=== PATIENT | male | born 1980 | race American Indian/Alaskan Native ===

== ENCOUNTER 2017-09-04 23:08 | Emergency (ER) | payer SELFPAY ==
[2017-09-04 23:20] VITALS: BP 130/90
[2017-09-05] MEDS ORDERED: KEPPRA 1,000 MG/NS 0.75% 100ML 1,000 MG/100 ML BAG IV ONE (00:04)
--- NOTE | 2017-09-05 00:11 | Emergency Department Report ---
ED Seizure HPI - General Chief Complaint: Seizure Stated Complaint: SEIZURE Time Seen by Provider: 09/04/17 23:57 Source: patient, EMS Mode of arrival: Stretcher Limitations: No Limitations, Other - History of Present Illness Initial Comments: Patient is 36 years old male history of seizure was six month ago he is not on any medication provided by EMS with one episode of lysed tonic-clonic seizure witnessed by his son. Patient denied any injury. MD Complaint: seizure -: Sudden Description of Episode: loss of consciousness, tonic-clonic movement, post- event confusion Witnessed:: Yes Trauma: No Seizure History: known seizure disorder Place: home - Related Data Previous Rx's Medication Instructions Recorded Last Taken Type Omeprazole Magnesium [PriLOSEC Otc] 20 mg PO QDAY #14 tablet. 01/09/17 Unknown Rx Ondansetron [Zofran TAB] 4 mg PO Q8HR PRN #14 tablet 01/09/17 Unknown Rx traMADol [Ultram 50 MG tab] 50 mg PO Q6HR PRN #12 tablet 01/09/17 Unknown Rx Allergies Allergy/AdvReac Type Severity Reaction Status Date / Time No Known Allergies Allergy Unverified 01/09/17 10:39 ED Review of Systems ROS: Stated complaint: SEIZURE Other details as noted in HPI Comment: All other systems reviewed and negative Constitutional: denies: chills, fever Respiratory: denies: cough Cardiovascular: denies: chest pain, palpitations, dyspnea on exertion Gastrointestinal: denies: abdominal pain, nausea, vomiting, diarrhea, constipation, hematemesis Genitourinary: denies: urgency, frequency Neurological: denies: headache ED Past Medical Hx - Past Medical History Previous Medical History?: Yes Hx Seizures: Yes - Surgical History Past Surgical History?: No - Social History Smoking Status: Unknown if ever smoked - Medications Home Medications: Home Medications Medication Instructions Recorded Confirmed Last Taken Type Omeprazole Magnesium [PriLOSEC Otc] 20 mg PO QDAY #14 tablet. 01/09/17 Unknown Rx Ondansetron [Zofran TAB] 4 mg PO Q8HR PRN #14 tablet 01/09/17 Unknown Rx traMADol [Ultram 50 MG tab] 50 mg PO Q6HR PRN #12 tablet 01/09/17 Unknown Rx ED Physical Exam - General Limitations: No Limitations, Other General appearance: alert, in no apparent distress - Head Head exam: Present: atraumatic, normocephalic - Eye Eye exam: Present: normal appearance - ENT ENT exam: Present: normal exam, normal orophraynx, mucous membranes moist, TM's normal bilaterally - Neck Neck exam: Present: normal inspection, full ROM. Absent: tenderness, meningismus, lymphadenopathy - Respiratory Respiratory exam: Present: normal lung sounds bilaterally. Absent: respiratory distress, wheezes, rales - Cardiovascular Cardiovascular Exam: Present: regular rate, normal rhythm, normal heart sounds - GI/Abdominal GI/Abdominal exam: Present: soft, normal bowel sounds. Absent: distended, tenderness, guarding, rebound, rigid, mass, bruit, pulsatile mass, hernia - Extremities Exam Extremities exam: Present: normal inspection, normal capillary refill. Absent: tenderness - Back Exam Back exam: Present: normal inspection. Absent: tenderness, CVA tenderness (R), CVA tenderness (L) - Neurological Exam Neurological exam: Present: alert, oriented X3, CN II-XII intact, normal gait - Skin Skin exam: Present: warm, intact, normal color ED Course Vital Signs 09/04/17 23:19 Temperature 98 F Pulse Rate 72 Respiratory 18 Rate Blood Pressure 130/90 [Left] O2 Sat by Pulse 98 Oximetry - Reevaluation(s) Reevaluation #1: 09/05/17 01:29 No seizure activity observed in the ER. ED Medical Decision Making - Lab Data Result diagrams: 09/05/17 00:15 09/05/17 00:15 - Radiology Data Radiology results: report reviewed CT brain unremarkable for acute finding - Medical Decision Making Since this is a second seizure patient is not on any antiseizure medication. I gave the patient 1 g loading dose of Keppra. I will discharge patient home with a Keppra prescription and is strongly advised to follow-up with a neurolgist. Critical care attestation.: If time is entered above; I have spent that time in minutes in the direct care of this critically ill patient, excluding procedure time. ED Disposition Clinical Impression: Seizure Disposition: DC-01 TO HOME OR SELFCARE Is pt being admited?: No Condition: Stable Instructions: Recurrent Seizures Adult (ED) Referrals: PRIMARY CARE, [Primary Care Provider] - 3-5 Days
[2017-09-05 00:56] LABS: Alanine Aminotransferase 17 units/L (7-56); Albumin 4.2 g/dL (3.9-5); Albumin/Globulin Ratio 1.8 %; Alkaline Phosphatase 51 units/L (35-129); Anion Gap 18 mmol/L; BUN/Creatinine Ratio 17; Blood Urea Nitrogen 17 mg/dL (9-20); Carbon Dioxide 23 mmol/L (22-30); Chloride 100.8 mmol/L (98-107); Glucose 85 mg/dL (75-100); Potassium 4.5 mmol/L (3.6-5.0); Sodium 137 mmol/L (137-145); Total Protein 6.5 g/dL (6.3-8.2)
[2017-09-05 01:03] LABS: Basophils % (Auto) 0.4 % (0.0-1.8); Eosinophils % (Auto) 0.9 % (0.0-4.3); Hemoglobin 13.5 gm/dl (11.8-15.2); Mean Corpuscular HGB Conc 33 % (32-34); Mean Corpuscular Hemoglobin 31 pg (28-32); Mean Corpuscular Volume 94 fl (84-94); Platelet Count 256 K/mm3 (140-440); White Blood Count 9.5 K/mm3 (4.5-11.0)
--- NOTE | 2017-09-05 01:14 | Cat Scan Report ---
FINAL REPORT EXAM: CT HEAD/BRAIN WO CON HISTORY: AMS COMPARISON: January [address] TECHNIQUE: Axial images obtained skull base through vertex. FINDINGS: No acute intracranial hemorrhage, midline shift or pathologic extra axial fluid collection. Ventricles and cisterns are normal in size and configuration for the patient's age. Avery-white differentiation preserved. Calvarium grossly intact. Mild to moderate mucosal thickening in the visualized paranasal sinuses. Mastoid air cells are clear. Visualized orbits are grossly unremarkable. IMPRESSION: No grossly acute intracranial abnormality.
[2017-09-05 01:25] LABS: Hematocrit 41.3 % (35.5-45.6); Red Blood Count 4.37 M/mm3 (3.65-5.03)
[2017-09-05 01:26] LABS: Mean Platelet Volume 9.8 fl (6-12); Red Cell Distribution Width 12.8 % (13.2-15.2)
== END 2017-09-05 01:53 | disposition home or self-care (01) ==
LOC: ED 23:08
DX: R56.9 Unspecified convulsions (principal)
CPT/HCPCS: 36415; 70450; 80053; 85025; 96374; 99285; J1953

== ENCOUNTER 2017-10-23 00:05 | Emergency (ER) | payer OTHER ==
[2017-10-23] MEDS ORDERED: NACL 0.9% 1000 ML 1,000 ML IV ONE ×2 (00:22→03:34)
[2017-10-23] MEDS ORDERED: KEPPRA 1,000 MG/NS 0.75% 100ML 1,000 MG/100 ML BAG IV ONE (00:22)
[2017-10-23 00:55] LABS: Basophils % (Auto) 0.2 % (0.0-1.8); Eosinophils % (Auto) 0.4 % (0.0-4.3); Hematocrit 42.8 % (35.5-45.6); Hemoglobin 13.9 gm/dl (11.8-15.2); Mean Corpuscular HGB Conc 33 % (32-34); Mean Corpuscular Hemoglobin 30 pg (28-32); Mean Corpuscular Volume 94 fl (84-94); Platelet Count 259 K/mm3 (140-440); Red Blood Count 4.56 M/mm3 (3.65-5.03)
--- NOTE | 2017-10-23 01:03 | Emergency Department Report ---
HPI - General Chief Complaint: Seizure Time Seen by Provider: 10/23/17 00:13 - HPI HPI: This is a 37-year-old -[place] male presents to the emergency department by EMS from home with the complaint of one to 2 seizures. Patient was found to be postictal and family had stated that he had a seizure that lasted about 15 minutes and during the seizure he had fallen off the bed and hit his head on the nightstand. At this point, the patient is awake and alert and complaining mostly of feeling thirsty and says that he bit his tongue. He says he has had seizures before but denies being on any antiseizure medication. He did not receive anything for her symptoms prior to presentation or in route. He denies any other past medical history. He denies any illicit drug use. No recent travel or sick contacts at home. ED Past Medical Hx - Past Medical History Previous Medical History?: Yes Hx Seizures: Yes - Surgical History Past Surgical History?: No - Social History Smoking Status: Current Every Day Smoker Substance Use Type: None - Medications Home Medications: Home Medications Medication Instructions Recorded Confirmed Last Taken Type Sulfamethoxazole/Trimethoprim 1 each PO BID #10 tablet 10/23/17 Unknown Rx [Bactrim DS TAB] levETIRAcetam [Keppra] 500 mg PO BID #60 tablet 10/23/17 Unknown Rx ED Review of Systems ROS: Stated complaint: SEIZURE Other details as noted in HPI Comment: All other systems reviewed and negative Constitutional: denies: chills, fever Eyes: denies: eye pain, eye discharge, vision change ENT: denies: ear pain, throat pain Respiratory: denies: cough, shortness of breath, wheezing Cardiovascular: denies: chest pain, palpitations Endocrine: increased thirst Gastrointestinal: denies: abdominal pain, nausea, diarrhea Genitourinary: denies: urgency, dysuria Musculoskeletal: denies: back pain, joint swelling, arthralgia Skin: denies: rash, lesions Neurological: other (seizure). denies: numbness, paresthesias Physical Exam - Physical Exam Vital Signs: Vital Signs 10/23/17 00:19 Temperature 97.8 F Pulse Rate 95 H Respiratory 16 Rate Blood Pressure 107/85 Blood Pressure 107/85 [Left] O2 Sat by Pulse 99 Oximetry Physical Exam: GENERAL: The patient is well-developed well-nourished. HENT: Normocephalic. Atraumatic. Patient has moist mucous membranes. Oropharynx is clear. There is a small right-sided tongue laceration from the patient biting his tongue that appears approximated. EYES: Extraocular motions are intact. Pupils equal reactive to light bilaterally. NECK: Supple. Trachea is midline. CHEST/LUNGS: Clear to auscultation. There is no respiratory distress noted. HEART/CARDIOVASCULAR: Regular. There is no tachycardia. There is no murmur. ABDOMEN: Abdomen is soft, nontender. Patient has normal bowel sounds. There is no abdominal distention. SKIN: Skin is warm and dry. NEURO: The patient is awake, alert, and oriented. The patient is cooperative. The patient has no focal neurologic deficits. The patient has normal speech. Cranial nerves II through XII grossly intact. MUSCULOSKELETAL: There is no tenderness or deformity. There is no limitation range of motion. There is no evidence of acute injury. ED Course Vital Signs 10/23/17 00:19 Temperature 97.8 F Pulse Rate 95 H Respiratory 16 Rate Blood Pressure 107/85 Blood Pressure 107/85 [Left] O2 Sat by Pulse 99 Oximetry ED Medical Decision Making - Lab Data Result diagrams: 10/23/17 00:32 10/23/17 00:32 - EKG Data -: EKG Interpreted by Nd EKG shows normal: sinus rhythm, axis, intervals, QRS complexes (Q waves to the septal leads), ST-T waves (there is some early repolarization) Rate: normal - EKG Data When compared to previous EKG there are: no significant change Interpretation: unchanged when compared t (01/10/2017) - Radiology Data Radiology results: report reviewed EXAM: CT Head w/o Contrast CLINICAL INDICATIONS: SEIZURE, HIT HEAD FINDINGS: Unenhanced CT of the brain was performed and demonstrates no acute intracranial hemorrhage, extra-axial fluid collection, midline shift or mass effect. The ventricles and basal cisterns are not effaced. The mastoid air cells and middle ears appear clear. There is a right maxillary polyp versus mucous retention cyst. There is no evidence of acute sinusitis. The bony calvarium appears intact. IMPRESSION: NO ACUTE INTRACRANIAL HEMORRHAGE Transcribed By: ALDEN Dictated By: ALEJANDRO BENNETT MD Electronically Authenticated By: ALEJANDRO BENNETT MD Signed Date/Time: 12/16/17 2202 - Medical Decision Making Patient presents after having a witnessed seizure at home that allegedly lasted about 15 minutes. He later told family that he had a seizure prior to this as well. He presents awake and alert. He was reevaluated multiple times for multiple hours and has remained stable and there has been no further seizure- like activity. CT the head did not show any bleed, shift, mass or any acute process. His labs have been mostly unremarkable. Urine drug screen came back positive for cocaine use. The patient later says that he took an ecstasy pill a few days ago that must have been cocaine based. He was covered with some IV Keppra and given some fluid resuscitation as he had a slightly elevated CPK level as well. Eventually the patient was seen ambulatory in the emergency department and appears stable. Vital signs stable throughout his ED course. He appears stable for discharge home at this time. He will go home with Keppra for antiepileptic medication, a few days of Bactrim to make sure he does not develop any infection with his tongue biting and no laceration and he was given a referral for neurology for follow-up regarding the seizures. He will return to the ER with any worsening of symptoms or any acute distress. - Differential Diagnosis epilepsy, substance abuse, TIA Critical Care Time: No Critical care attestation.: If time is entered above; I have spent that time in minutes in the direct care of this critically ill patient, excluding procedure time. ED Disposition Clinical Impression: Seizure, Cocaine use, Tongue biting Disposition: DC-01 TO HOME OR SELFCARE Is pt being admited?: No Condition: Stable Instructions: Cocaine Abuse (ED), Recurrent Seizures Adult (ED) Additional Instructions: Please follow up with a primary care physician in the next few days. I have given her a referral for a local neurologist, Dr. Mckenzie, to follow up regarding your seizures. Please stay away from any illicit drug use or alcohol use/abuse as this can lower your seizure threshold. I have written you for some antiseizure medication, Keppra, to be taken twice daily. Return to the emergency department with any further seizure-like activity, worsening of your symptoms, or any acute distress. Prescriptions: levETIRAcetam [Keppra] 500 mg PO BID #60 tablet Sulfamethoxazole/Trimethoprim [Bactrim DS TAB] 1 each PO BID #10 tablet Referrals: ILT TORRES MD [Staff Physician] - 3-5 Days SHIKHA MCKENZIE MD [Staff Physician] - 3-5 Days Time of Disposition: 05:18
[2017-10-23] MEDS ORDERED: TYLENOL PO ONE (01:37)
[2017-10-23 01:43] LABS: Urine Drugs of Abuse Note Disclamer
[2017-10-23 01:56] LABS: Bacteria,Urine 1+ /HPF (Negative); Bilirubin,Urine NEG (Negative); Blood,Urine NEG (Negative); Ketones,Urine TR mg/dL (Negative); Leukocyte Esterase,Urine NEG (Negative); Mucus,Urine FEW /HPF; Nitrite,Urine NEG (Negative); Protein,Urine <15 mg/dL mg/dL (Negative); Urobilinogen,Urine < 2.0 mg/dL (<2.0)
[2017-10-23 01:59] LABS: Alanine Aminotransferase 14 units/L (7-56); Albumin 4.6 g/dL (3.9-5); Albumin/Globulin Ratio 1.5 %; Alkaline Phosphatase 61 units/L (35-129); Anion Gap 21 mmol/L; BUN/Creatinine Ratio 13; Blood Urea Nitrogen 13 mg/dL (9-20); Calcium 9.3 mg/dL (8.4-10.2); Carbon Dioxide 23 mmol/L (22-30); Chloride 102.1 mmol/L (98-107); Creatine Kinase 715 units/L (55-170); Glucose 84 mg/dL (75-100); Potassium 4.7 mmol/L (3.6-5.0); Sodium 141 mmol/L (137-145); Total Protein 7.6 g/dL (6.3-8.2)
--- NOTE | 2017-10-23 02:05 | Cat Scan Report ---
FINAL REPORT EXAM: CT Head w/o Contrast CLINICAL INDICATIONS: SEIZURE, HIT HEAD FINDINGS: Unenhanced CT of the brain was performed and demonstrates no acute intracranial hemorrhage, extra-axial fluid collection, midline shift or mass effect. The ventricles and basal cisterns are not effaced. The mastoid air cells and middle ears appear clear. There is a right maxillary polyp versus mucous retention cyst. There is no evidence of acute sinusitis. The bony calvarium appears intact. IMPRESSION: NO ACUTE INTRACRANIAL HEMORRHAGE
[2017-10-23 04:48] VITALS: BP 117/77
== END 2017-10-23 05:46 | disposition home or self-care (01) ==
LOC: ED 00:05
DX: R56.9 Unspecified convulsions (principal); S01.552A Open bite of oral cavity, initial encounter; F14.90 Cocaine use, unspecified, uncomplicated; Z79.899 Other long term (current) drug therapy; W18.09XA Striking against other object with subsequent fall, initial encounter; Y93.89 Activity, other specified; Y99.8 Other external cause status; Y92.009 Unspecified place in unspecified non-institutional (private) residence as the place of occurrence of the external cause
CPT/HCPCS: 36415; 70450; 80053; 80307; 81001; 82550; 84443; 84484; 85025; 93005; 93010; 96361; 96365; 99284; G0480; J1953; J7030; 80320

== ENCOUNTER 2018-11-19 16:28 | Emergency (ER) | payer SELFPAY ==
[2018-11-19] MEDS ORDERED: ATIVAN ONE (16:48)
[2018-11-19] MEDS ORDERED: D50W (25GM) Syringe IV ONE ×2 (16:58→17:20)
[2018-11-19] MEDS ORDERED: NACL 0.9% 1000 ML 1,000 ML IV ONE (17:05)
[2018-11-19] MEDS ORDERED: KEPPRA 1,000 MG/NS 0.75% 100ML 1,000 MG/100 ML BAG IV ONE (17:05)
--- NOTE | 2018-11-19 17:08 | Emergency Department Report ---
ED Seizure HPI - General Chief Complaint: Seizure Stated Complaint: SEIZURE Time Seen by Provider: 11/19/18 17:03 Source: EMS Mode of arrival: Stretcher Limitations: Other - History of Present Illness Initial Comments: Patient is a 38-year-old -[place] male with past history of seizure disorder who has been medically noncompliant with his medications and is presenting status post seizure. Patient had a tonic-clonic seizure prior to arrival as well as one was C arrived. Emergency department. Patient was given Ativan while having a seizure here in the emergency department. Patient is unable to give any additional history at this time. - Related Data Previous Rx's Medication Instructions Recorded Last Taken Type Sulfamethoxazole/Trimethoprim 1 each PO BID #10 tablet 10/23/17 Unknown Rx [Bactrim DS TAB] Nystas/Diphen/Xyl Visc/Mylanta 30 ml MM Q4H #200 ml 11/19/18 Unknown Rx [Magic Mouthwash] levETIRAcetam [Keppra] 500 mg PO BID #60 tablet 11/19/18 Unknown Rx Allergies Allergy/AdvReac Type Severity Reaction Status Date / Time No Known Allergies Allergy Verified 11/19/18 17:02 ED Review of Systems ROS: Stated complaint: SEIZURE Other details as noted in HPI Comment: Unobtainable due to pts medical conditions ED Past Medical Hx - Past Medical History Hx Seizures: Yes - Social History Smoking Status: Unknown if ever smoked - Medications Home Medications: Home Medications Medication Instructions Recorded Confirmed Last Taken Type Sulfamethoxazole/Trimethoprim 1 each PO BID #10 tablet 10/23/17 Unknown Rx [Bactrim DS TAB] Nystas/Diphen/Xyl Visc/Mylanta 30 ml MM Q4H #200 ml 11/19/18 Unknown Rx [Magic Mouthwash] levETIRAcetam [Keppra] 500 mg PO BID #60 tablet 11/19/18 Unknown Rx ED Physical Exam - General Limitations: Altered Mental Status, Other General appearance: lethargic - Head Head exam: Present: atraumatic, normocephalic - Eye Eye exam: Present: normal appearance, PERRL - ENT ENT exam: Present: mucous membranes moist. Absent: normal orophraynx (patient has a small laceration to tongue) - Neck Neck exam: Present: normal inspection - Respiratory Respiratory exam: Present: normal lung sounds bilaterally. Absent: respiratory distress, wheezes, rales, rhonchi - Cardiovascular Cardiovascular Exam: Present: regular rate, normal rhythm, normal heart sounds. Absent: systolic murmur, diastolic murmur, rubs, gallop - GI/Abdominal GI/Abdominal exam: Present: soft, normal bowel sounds. Absent: distended, rigid - Psychiatric Psychiatric exam: Absent: normal affect, normal mood, depressed ED Course Vital Signs 11/19/18 11/19/18 11/19/18 16:58 17:00 17:02 Temperature 96.8 F L Pulse Rate 113 H 113 H 110 H Respiratory 21 36 H 16 Rate Blood Pressure 161/77 O2 Sat by Pulse 100 Oximetry 11/19/18 11/19/18 11/19/18 17:16 17:30 17:46 Temperature Pulse Rate 101 H 95 H 120 H Respiratory 22 23 26 H Rate Blood Pressure O2 Sat by Pulse Oximetry 11/19/18 11/19/18 11/19/18 18:00 18:15 18:30 Temperature Pulse Rate 110 H 109 H 107 H Respiratory 20 18 17 Rate Blood Pressure 111/63 114/66 109/61 O2 Sat by Pulse 93 91 90 Oximetry 11/19/18 11/19/18 11/19/18 18:45 19:00 19:15 Temperature Pulse Rate 110 H 103 H 98 H Respiratory 21 19 19 Rate Blood Pressure 96/66 96/66 118/72 O2 Sat by Pulse 92 90 94 Oximetry 11/19/18 11/19/18 11/19/18 19:30 19:45 20:00 Temperature Pulse Rate 96 H 94 H 88 Respiratory 18 19 15 Rate Blood Pressure 123/69 113/71 115/76 O2 Sat by Pulse 92 92 91 Oximetry 11/19/18 11/19/18 11/19/18 20:16 20:30 20:45 Temperature Pulse Rate 95 H 94 H 90 Respiratory 21 16 15 Rate Blood Pressure 117/70 125/75 130/76 O2 Sat by Pulse 89 95 96 Oximetry 11/19/18 11/19/18 11/19/18 21:00 21:16 21:30 Temperature Pulse Rate 108 H 107 H 89 Respiratory 14 14 16 Rate Blood Pressure 129/81 131/84 131/84 O2 Sat by Pulse 88 97 95 Oximetry - Reevaluation(s) Reevaluation #1: 11/19/18 17:08 Patient was noted by nursing staff to have a blood sugar in the 40s. Patient w as given an amp of D50 and we will recheck his blood sugar approximately an hour. Reevaluation #2: 11/19/18 22:01 Patient was monitored and eventually was alert and oriented 3 in no longer postictal. Patient once he completely lucid was complaining of some left sided jaw pain. Patient does have a small abrasion to the inner cheek as well as tongue however he also has some tenderness at the angle of the jaw as well. CT of the facial bones was added as negative for acute fracture. Patient was discharged home with a prescription for his Keppra. ED Medical Decision Making - Lab Data Result diagrams: 11/19/18 17:09 11/19/18 17:09 - Radiology Data Radiology results: image reviewed (CT of facial bones shows no acute process) Critical care attestation.: If time is entered above; I have spent that time in minutes in the direct care of this critically ill patient, excluding procedure time. ED Disposition Clinical Impression: Seizure, Medical non-compliance Alcohol intoxication Qualifiers: Complication of substance-induced condition: uncomplicated Qualified Code(s): F10.920 - Alcohol use, unspecified with intoxication, uncomplicated Abrasion of oral cavity Qualifiers: Encounter type: initial encounter Qualified Code(s): S00.512A - Abrasion of oral cavity, initial encounter Disposition: TO HOME OR SELFCARE Is pt being admited?: No Does the pt Need Aspirin: No Condition: Stable Prescriptions: levETIRAcetam [Keppra] 500 mg PO BID #60 tablet Nystas/Diphen/Xyl Visc/Mylanta [Magic Mouthwash] 30 ml MM Q4H #200 ml Referrals: PRIMARY CARE, [Primary Care Provider] - 3-5 Days Time of Disposition: 22:04
[2018-11-19 17:16] LABS: Mean Corpuscular HGB Conc 30 % (32-34); Mean Corpuscular Volume 102 fl (84-94); Platelet Count 300 K/mm3 (140-440); Red Blood Count 4.65 M/mm3 (3.65-5.03); Red Cell Distribution Width 14.4 % (13.2-15.2)
[2018-11-19 17:19] LABS: Hematocrit 47.3 % (35.5-45.6); Hemoglobin 14.2 gm/dl (11.8-15.2)
[2018-11-19] MEDS ORDERED: ATIVAN IV ONE ×2 (17:20→17:55)
[2018-11-19 17:32] LABS: BUN/Creatinine Ratio 14; Blood Urea Nitrogen 17 mg/dL (9-20); Hemolysis Index 94
[2018-11-19 19:10] LABS: Anisocytosis 1+; Band Neutrophils # (Manual) 0.6 K/mm3; Basophils % (Manual) 0 % (0.0-1.8); Macrocytosis Few; Platelet Estimate Consistent w Auto; Total Cells Counted 100
[2018-11-19 21:38] VITALS: BP 131/84
--- NOTE | 2018-11-19 22:25 | Cat Scan Report ---
FINAL REPORT EXAM: CT FACIAL BONES WO CON HISTORY: left jaw pain after SZ. PT WAS OUT OF IT AND COMBATIVE. COULDN'T TAKE JEWELRY OFF HIM. BEST STUDY POSSIBLE. KEPT MOVING. REPEATED. TECHNIQUE: Helical CT was performed of the facial bones in the axial plane and reconstructed in the sagittal and coronal planes. PRIORS: None. FINDINGS: The orbits, zygomatic arches and mandible are intact. The nasal bones and pterygoid plates are intact . There is no evidence of acute facial fracture. The soft tissues appear normal. There is patchy opac ification of the bilateral ethmoid air cells. There is mild mucosal thickening in the right maxillary and sphenoid sinuses. IMPRESSION: No evidence of acute fracture.
== END 2018-11-19 22:35 | disposition home or self-care (01) ==
LOC: ED 16:28
DX: G40.909 Epilepsy, unspecified, not intractable, without status epilepticus (principal); S00.512A Abrasion of oral cavity, initial encounter; F10.920 Alcohol use, unspecified with intoxication, uncomplicated; X58.XXXA Exposure to other specified factors, initial encounter; Y93.89 Activity, other specified; Y92.89 Other specified places as the place of occurrence of the external cause; Y99.8 Other external cause status
CPT/HCPCS: 36415; 70486; 80048; 82962; 85007; 85025; 96365; 96375; 96376; 99285; G0480; J1953; J2060; J7030; 80320

== ENCOUNTER 2018-12-04 04:48 | Emergency (ER) | payer SELFPAY ==
[2018-12-04 05:52] LABS: Hematocrit 38.2 % (35.5-45.6); Hemoglobin 12.4 gm/dl (11.8-15.2); Mean Corpuscular HGB Conc 33 % (32-34); Mean Corpuscular Volume 94 fl (84-94); Platelet Count 328 K/mm3 (140-440); Red Blood Count 4.09 M/mm3 (3.65-5.03); Red Cell Distribution Width 13.4 % (13.2-15.2)
[2018-12-04 06:03] LABS: BUN/Creatinine Ratio 15; Blood Urea Nitrogen 12 mg/dL (9-20); Calcium 8.9 mg/dL (8.4-10.2); Hemolysis Index 17
[2018-12-04] MEDS ORDERED: NACL 0.9% 1000 ML 1,000 ML IV ONE (06:30)
[2018-12-04] MEDS ORDERED: KEPPRA 1,000 MG/NS 0.75% 100ML 1,000 MG/100 ML BAG IV ONE (06:30)
--- NOTE | 2018-12-04 06:33 | Emergency Department Report ---
HPI - General Chief Complaint: Seizure Time Seen by Provider: 12/04/18 05:59 - HPI HPI: 38-year-old -[place] male presents to the emergency department by EMS from home after he had 2 witnessed seizures by family prior to arrival. The last seizure today was at about 3 AM. The patient has a known seizure disorder history and was here about 2 weeks ago for a witnessed tonic-clonic seizure at that time. He was discharged home on some Keppra. The patient does admit to medication noncompliance. He denies having a primary care physician. He was not given anything for his symptoms prior to arrival. The patient is currently awake but still sleepy and/or slightly postictal. ED Past Medical Hx - Past Medical History Previous Medical History?: Yes Hx Seizures: Yes Hx Asthma: Yes Additional medical history: Heart murmur - Surgical History Past Surgical History?: Yes Additional Surgical History: Abdominal hernia repair - Social History Smoking Status: Current Every Day Smoker Substance Use Type: Marijuana - Medications Home Medications: Home Medications Medication Instructions Recorded Confirmed Last Taken Type Sulfamethoxazole/Trimethoprim 1 each PO BID #10 tablet 10/23/17 Unknown Rx [Bactrim DS TAB] Nystas/Diphen/Xyl Visc/Mylanta 30 ml MM Q4H #200 ml 11/19/18 Unknown Rx [Magic Mouthwash] levETIRAcetam [Keppra] 500 mg PO BID #60 tablet 12/04/18 Unknown Rx ED Review of Systems ROS: Stated complaint: SEIZURE Other details as noted in HPI Comment: All other systems reviewed and negative Constitutional: denies: chills, fever Eyes: denies: eye pain, vision change ENT: other (tongue pain, bit his tongue). denies: throat pain Respiratory: denies: cough, shortness of breath Cardiovascular: denies: chest pain, palpitations Gastrointestinal: denies: abdominal pain, vomiting Genitourinary: denies: dysuria, discharge Musculoskeletal: denies: back pain, arthralgia Skin: denies: rash, lesions Neurological: other (seizure). denies: headache Physical Exam - Physical Exam Vital Signs: Vital Signs 12/04/18 04:50 Temperature 97.8 F Pulse Rate 78 Respiratory 18 Rate Blood Pressure 133/91 Blood Pressure 133/91 [Right] O2 Sat by Pulse 98 Oximetry Physical Exam: GENERAL: The patient is well-developed well-nourished. HEENT: Normocephalic. Atraumatic. Patient has moist mucous membranes. EYES: Extraocular motions are intact. Pupils are equal and reactive to light bilaterally. NECK: Supple. Trachea is midline. CHEST/LUNGS: Clear to auscultation. There is no respiratory distress noted. HEART/CARDIOVASCULAR: Regular. There is no tachycardia. There is no obvious murmur. ABDOMEN: Abdomen is soft, nontender. Patient has normal bowel sounds. There is no abdominal distention. SKIN: Skin is warm and dry. NEURO: The patient is awake, alert, and oriented. The patient is cooperative. The patient has no focal neurologic deficits. The patient has normal speech. Cranial nerves II through XII grossly intact. MUSCULOSKELETAL: There is no tenderness or deformity. There is no limitation range of motion. There is no evidence of acute injury. ED Course Vital Signs 12/04/18 04:50 Temperature 97.8 F Pulse Rate 78 Respiratory 18 Rate Blood Pressure 133/91 Blood Pressure 133/91 [Right] O2 Sat by Pulse 98 Oximetry ED Medical Decision Making - Lab Data Result diagrams: 12/04/18 05:43 12/04/18 05:43 - EKG Data -: EKG Interpreted by Nv EKG shows normal: sinus rhythm, axis, intervals, QRS complexes, ST-T waves (immunization) Rate: normal - EKG Data When compared to previous EKG there are: no significant change Interpretation: unchanged when compared t (01/09/17) - Medical Decision Making Patient came in after having 2 witnessed seizures earlier this morning. By the time I'm seeing this patient and he is easily arousable and oriented to person, place and time. An IV was placed and he was given IV fluid resuscitation and a loading dose of Keppra. Patient's labs have been unremarkable. Vital signs stable throughout his ED course. Patient has a known seizure disorder and has been noncompliant with medications. He previously had a CT scan of the head. He is currently awake and alert. All these reasons I did not feel that any CT imaging of the head was necessary at this time. Prior to discharge, the patient was seen ambulatory and appeared and feels stable. Patient will be restarted o n Keppra and has been given another prescription. We had a long conversation about medication noncompliance and any type of alcohol or illicit drugs that will lower the seizure threshold. He has been given a referral for neurology and primary care. He has been instructed to return to the emergency department with any further seizure-like activity, worsening of his symptoms, or any acute distress. - Differential Diagnosis epilepsy, substance abuse, dysrhythmia, electrolyte abnormalities, hypoglyc Critical Care Time: No Critical care attestation.: If time is entered above; I have spent that time in minutes in the direct care of this critically ill patient, excluding procedure time. ED Disposition Clinical Impression: Seizure disorder Disposition: DC- TO HOME OR SELFCARE Is pt being admited?: No Condition: Stable Instructions: Epilepsy (ED) Additional Instructions: Please follow up with a primary care physician in the next few days. I am also giving him a referral for a local neurologist, Dr. Schroeder. I am getting another prescription for Keppra to start taking for your seizures. Please try to avoid any alcohol, illicit drug use, as these things can decrease your seizure threshold. Return to the emergency Department with any worsening of her symptoms, recurrent seizures, or with any acute distress. Prescriptions: levETIRAcetam [Keppra] 500 mg PO BID #60 tablet Referrals: [facility] [Outside] - 3-5 Days NORTH SCHROEDER MD [Staff Physician] - 3-5 Days Time of Disposition: 10:49
[2018-12-04 12:16] VITALS: BP 122/77
== END 2018-12-04 12:16 | disposition home or self-care (01) ==
LOC: ED 04:48
DX: G40.909 Epilepsy, unspecified, not intractable, without status epilepticus (principal); J45.909 Unspecified asthma, uncomplicated; F17.200 Nicotine dependence, unspecified, uncomplicated; F12.10 Cannabis abuse, uncomplicated
CPT/HCPCS: 36415; 80048; 82550; 84484; 85027; 93005; 93010; 96374; 99284; G0480; J1953; J7030; 80320

== ENCOUNTER 2018-12-19 06:46 | Emergency (ER) | payer SELFPAY ==
[2018-12-19] MEDS ORDERED: ATIVAN IV ONE (07:39)
[2018-12-19] MEDS ORDERED: KEPPRA PO ONE (07:40)
--- NOTE | 2018-12-19 07:51 | Emergency Department Report ---
ED General Adult HPI - General Chief complaint: Seizure Stated complaint: SEIZURE Time Seen by Provider: 12/19/18 07:32 Source: EMS Mode of arrival: Stretcher Limitations: No Limitations - History of Present Illness Initial comments: Patient presents to emergency department with a witnessed seizure. Patient has a history of seizures but does not take his Keppra. Patient denies any chest pain, short of breath, headache, arm or leg pain. -: Sudden Severity scale (0 -10): 0 Consistency: now resolved Improves with: none Worsens with: none Associated Symptoms: denies other symptoms - Related Data Previous Rx's Medication Instructions Recorded Last Taken Type Sulfamethoxazole/Trimethoprim 1 each PO BID #10 tablet 10/23/17 Unknown Rx [Bactrim DS TAB] Nystas/Diphen/Xyl Visc/Mylanta 30 ml MM Q4H #200 ml 11/19/18 Unknown Rx [Magic Mouthwash] levETIRAcetam [Keppra] 500 mg PO BID #60 tablet 12/04/18 Unknown Rx levETIRAcetam [Keppra] 500 mg PO BID #60 tablet 12/19/18 Unknown Rx Allergies Allergy/AdvReac Type Severity Reaction Status Date / Time No Known Allergies Allergy Verified 11/19/18 17:02 ED Review of Systems ROS: Stated complaint: SEIZURE Other details as noted in HPI Comment: All other systems reviewed and negative Constitutional: denies: chills, fever Eyes: denies: eye pain, eye discharge, vision change ENT: denies: ear pain, throat pain Respiratory: denies: cough, shortness of breath, wheezing Cardiovascular: denies: chest pain, palpitations Endocrine: no symptoms reported Gastrointestinal: denies: abdominal pain, nausea, diarrhea Genitourinary: denies: urgency, dysuria Musculoskeletal: denies: back pain, joint swelling, arthralgia Skin: denies: rash, lesions Neurological: denies: headache, weakness, paresthesias Psychiatric: denies: anxiety, depression Hematological/Lymphatic: denies: easy bleeding, easy bruising ED Past Medical Hx - Past Medical History Previous Medical History?: Yes Hx Seizures: Yes Hx Asthma: Yes Additional medical history: Heart murmur - Surgical History Past Surgical History?: Yes Additional Surgical History: Abdominal hernia repair - Social History Smoking Status: Current Every Day Smoker Substance Use Type: None - Medications Home Medications: Home Medications Medication Instructions Recorded Confirmed Last Taken Type Sulfamethoxazole/Trimethoprim 1 each PO BID #10 tablet 10/23/17 Unknown Rx [Bactrim DS TAB] Nystas/Diphen/Xyl Visc/Mylanta 30 ml MM Q4H #200 ml 11/19/18 Unknown Rx [Magic Mouthwash] levETIRAcetam [Keppra] 500 mg PO BID #60 tablet 12/04/18 Unknown Rx levETIRAcetam [Keppra] 500 mg PO BID #60 tablet 12/19/18 Unknown Rx ED Physical Exam - General Limitations: No Limitations General appearance: alert, in no apparent distress - Head Head exam: Present: atraumatic, normocephalic - Eye Eye exam: Present: normal appearance, PERRL, EOMI - ENT ENT exam: Present: mucous membranes moist - Neck Neck exam: Present: normal inspection - Respiratory Respiratory exam: Present: normal lung sounds bilaterally. Absent: respiratory distress, wheezes, rales - Cardiovascular Cardiovascular Exam: Present: regular rate, normal rhythm. Absent: systolic murmur, diastolic murmur, rubs, gallop - GI/Abdominal GI/Abdominal exam: Present: soft, normal bowel sounds. Absent: distended, tenderness - Rectal Rectal exam: Present: deferred - Extremities Exam Extremities exam: Present: normal inspection - Back Exam Back exam: Present: normal inspection - Neurological Exam Neurological exam: Present: alert, oriented X3, CN II-XII intact. Absent: motor sensory deficit - Psychiatric Psychiatric exam: Present: normal affect, normal mood - Skin Skin exam: Present: warm, dry, intact, normal color. Absent: rash ED Course Vital Signs 12/19/18 12/19/18 12/19/18 07:18 07:30 07:50 Temperature 98.2 F 98.2 F Pulse Rate 72 72 Respiratory 17 15 15 Rate Blood Pressure 121/82 Blood Pressure 121/82 125/80 [Left] O2 Sat by Pulse 96 99 98 Oximetry ED Medical Decision Making - Medical Decision Making Patient given Ativan and Keshabnamra Critical care attestation.: If time is entered above; I have spent that time in minutes in the direct care of this critically ill patient, excluding procedure time. ED Disposition Clinical Impression: Seizure Disposition: DC-01 TO HOME OR SELFCARE Is pt being admited?: No Does the pt Need Aspirin: No Condition: Stable Instructions: Recurrent Seizures Adult (ED) Additional Instructions: return if worse Prescriptions: levETIRAcetam [Keppra] 500 mg PO BID #60 tablet Referrals: CHARO AHMADI MD [Primary Care Provider] - 3-5 Days [facility] [Provider Group] - 3-5 Days [facility] [Provider Group] - 3-5 Days Time of Disposition: 08:24
[2018-12-19 11:19] VITALS: BP 131/79
== END 2018-12-19 10:58 | disposition home or self-care (01) ==
LOC: ED 06:46
DX: R56.9 Unspecified convulsions (principal); J45.909 Unspecified asthma, uncomplicated; F17.200 Nicotine dependence, unspecified, uncomplicated; Z79.899 Other long term (current) drug therapy
CPT/HCPCS: 82962; 96374; 99284; J2060